=== PATIENT | male | born 1945 | race Caucasian/White ===

== ENCOUNTER 2017-08-22 12:30 | Inpatient (IN) | payer OTHER, MEDICARE ==
--- NOTE | 2017-09-25 15:16 | GHP ---
[f rep st] PREOP HISTORY AND PHYSICAL DATE OF ADMISSION: 09/26/2017 CHIEF COMPLAINT: Right ankle pain. HISTORY OF PRESENT ILLNESS: The patient is a 72-year-old with a history of progressive right ankle p ain. He is having limited activity secondary to his pain. PAST MEDICAL HISTORY: Positive for cancer. PAST SURGICAL HISTORY: Positive for previous orthopedic surgeries. SOCIAL HISTORY: Negative for current tobacco smoking. MEDICATIONS: He lists no medicines. ALLERGIES: He has no drug allergies. PHYSICAL EXAMINATION: HEENT: Head is normocephalic. Pupils equal, round, reactive to light. Extra ocular eye movements intact. NECK: Supple. No JVD or lymphadenopathy. CHEST: Clear to auscultati on. HEART: Regular rate and rhythm. No murmurs or gallops. ABDOMEN: Soft, nontender, nondistende d. No organomegaly. GENITALIA: Exam was deferred. RECTUM: Exam was deferred. BREASTS: Exam was deferred. EXTREMITIES: Exam reveals moderate swelling, diffuse tenderness in his right ankle. IMAGING: AP and lateral radiographs showed advanced ankle arthrosis. ASSESSMENT: Right ankle arthrosis. PLAN: The patient is scheduled to undergo right total ankle arthroplasty. /[id number]/MODL
[2017-09-26] MEDS ORDERED: LIDOCAINE 1% 2 ML INJ ID PRN (11:20)
[2017-09-26] MEDS ORDERED: LR 1,000 ML IV ONE (11:20)
[2017-09-26] MEDS ORDERED: ceFAZolin 2 GM/SWFI 2 GM/20 ML SYR IVP ONE (11:30)
--- NOTE | 2017-09-26 11:30 | PDANEPAE ---
ANE Past Medical History - Cardiovascular History Hx Hypertension: No Hx Arrhythmias: No Hx Chest Pain: No Hx Coronary Artery / Peripheral Vascular Disease: No Hx CHF / Valvular Disease: No Hx Palpitations: No - Pulmonary History Hx COPD: No Hx Asthma/Reactive Airway Disease: No Hx Recent Upper Respiratory Infection: No Hx Oxygen in Use at Home: No Hx Sleep Apnea: No Sleep Apnea Screening Result - Last Documented: Negative - Neurologic History Hx Cerebrovascular Accident: No Hx Seizures: No Hx Dementia: No - Endocrine History Hx Diabetes: No Hypothyroid: No Hyperthyroid: No Obesity: no - Renal History Hx Renal Disorders: No Renal History Comment: BLADDER CANCER - Liver History Hx Hepatic Disorders: No - Neurological & Psychiatric Hx Hx Neurological and Psychiatric Disorders: No - Cancer History Hx Cancer: Yes Cancer History Comment: BLADDER CANCER 2009 - Congenital Disorder History Hx Congenital Disorders: No - GI History GERD: no Hx Gastrointestinal Disorders: No - Other Health History Other Health History: NEG - Chronic Pain History Chronic Pain: Yes - Surgical History Prior Surgeries: 2009 BLADDER TUMORS. 2009 L KNEE. 2000 R ANKLE ANE Review of Systems Review of Systems: - Exercise capacity METS (RN): 5 METS ANE Patient History - Allergies Allergies/Adverse Reactions: No Known Allergies Allergy (Unverified 08/10/17 10:50) - Home Medications Home Medications: Herbals/Supplements -Info Only 1 each PO DAILY 08/10/17 [Last Taken 09/19/17] - Smoking Hx Smoking Status: Former smoker Marijuana use: No - Alcohol Use Alcohol Use: Occasionally - Family Anes Hx Family Anes Hx: neg - N/A Family Hx Anesthesia Complications: NEG ANE Labs/Vital Signs - Vital Signs Height: 172.72 cm Weight: 73.936 kg ANE Physical Exam - Airway Neck exam: FROM Mallampati Score: Class 2 Mouth exam: normal dental/mouth exam - Pulmonary Pulmonary: no respiratory distress, no rales or rhonchi, clear to auscultation - Cardiovascular Cardiovascular: regular rate and rhythym - ASA Status ASA Status: II ANE Anesthesia Plan Anesthesia Plan: GA w LMA Regional Anesthesia: continuous NB, popliteal SNB
[2017-09-26] MEDS ORDERED: morphINE PCA 30 MG/30 ML PCA IV PRN (11:41)
[2017-09-26] MEDS ORDERED: ONDANSETRON 4 MG/2 ML VIAL IVP PRN ×2 (11:41→14:45)
[2017-09-26] MEDS ORDERED: diphenhydrAMINE 25 MG CAP PO PRN (11:41)
[2017-09-26] MEDS ORDERED: NALOXONE HCL 0.4 MG/ML INJ IVP PRN ×2 (11:41→14:45)
[2017-09-26] MEDS ORDERED: PROMETHAZINE HCL 25 MG/ML INJ IVP PRN ×2 (11:41→14:45)
--- NOTE | 2017-09-26 11:41 | POSTOPPROG ---
Post Op Note Date of Operation: 09/26/17 Surgeon: Lloyd Leyva Director Of Extension Work: Kelly De Dios PA-C Anesthesia: GET(General Endotracheal) Pre-op Diagnosis: R ankle arthrosis Post-op Diagnosis: same Procedure: R TAA Inf/Abcess present in the surg proc area at time of surgery?: No
[2017-09-26] MEDS ORDERED: D5W 1/2 NS W/ 20 KCl/L 1,000 ML IV SCH (11:45)
[2017-09-26] MEDS ORDERED: BUPIVACAINE 0.5% 30 ML SDV ONE (11:45)
[2017-09-26] MEDS ORDERED: MIDAZOLAM 2 MG/2 ML VIAL ONE (11:50)
[2017-09-26] MEDS ORDERED: MIDAZOLAM 2 MG/2 ML VIAL IVP ONE (11:52)
[2017-09-26] MEDS ORDERED: fentaNYL 100 MCG/2 ML INJ ONE ×2 (11:54→14:00)
[2017-09-26] MEDS ORDERED: DEXAMETHASONE 4 MG/ML VIAL ONE (11:54)
[2017-09-26] MEDS ORDERED: ONDANSETRON 4 MG/2 ML VIAL ONE (11:54)
[2017-09-26] MEDS ORDERED: PROPOFOL 200 MG/20 ML VIAL ONE (11:55)
[2017-09-26] MEDS ORDERED: LIDOCAINE 2% 5 ML SDV ONE (11:55)
[2017-09-26] MEDS ORDERED: ROCURONIUM 50 MG/5 ML VIAL ONE ×2 (12:17→14:31)
[2017-09-26] MEDS ORDERED: epHEDrine SULFATE 10 MG/ML SYR ONE (13:00)
[2017-09-26] MEDS ORDERED: REMIFENTANIL HCL 1 MG VIAL ONE (14:16)
[2017-09-26] MEDS ORDERED: ACETAMINOPHEN 500 MG TAB PO PRN (14:45)
[2017-09-26] MEDS ORDERED: LR 500 ML IV PRN (14:45)
[2017-09-26] MEDS ORDERED: OXYCODONE/APAP 5/325 TAB PO PRN (14:45)
[2017-09-26] MEDS ORDERED: fentaNYL 100 MCG/2 ML INJ IVP PRN (14:45)
[2017-09-26] MEDS ORDERED: HYDROCODONE/APAP 5/325 TAB PO PRN (14:45)
[2017-09-26] MEDS ORDERED: SUGAMMADEX SODIUM 200 MG/2 ML VIAL IVP ONE (14:52)
[2017-09-26] MEDS ORDERED: [UNRECOGNIZED DRUG - OTHER] IF ONE (15:16)
--- NOTE | 2017-09-26 15:19 | POSTANESTH ---
Post Anesthetic Evaluation Cardiovascular Status: Normal, Stable Respiratory Status: Normal, Stable Level of Consciousness/Mental Status: Can Participate in Eval Pain Control: Adequate, Prn Tx Ordered Nausea/Vomiting Control: Adequate, Prn Tx Ordered Complications Possibly Related to Anesthesia: None Noted
[2017-09-26] MEDS ORDERED: ROPIVACAINE 0.2% 1,100 MG in PUMP SET 1 EA NB SCH (15:30)
[2017-09-26] MEDS ORDERED: BUPIVACAINE 0.25% 550 ML in PUMP SET 1 EA NB SCH (15:30)
[2017-09-26] MEDS: ceFAZolin 2 GM/DEXTROSE 100 ML IV SCH ×2 (17:32→21:39)
[2017-09-26] MEDS: ENOXAPARIN 30 MG/0.3 ML SYR SC SCH (21:39)
--- NOTE | 2017-09-26 23:03 | GOP ---
[f rep st] OPERATIVE REPORT DATE OF OPERATION: 09/26/2017 SURGEON: Lloyd Leyva MD BUTTON STATION WORKER: Emilie De Dios PA-C, who was necessary for the completion of the surgery. ANESTHESIA: General plus indwelling popliteal block performed by the anesthesiologist at my request for postoperative pain management. PREOPERATIVE DIAGNOSIS: 1. Right ankle arthrosis. 2. Right lateral ankle ligament instability. POSTOPERATIVE DIAGNOSIS: 1. Right ankle arthrosis. 2. Right lateral ankle ligament instability. PROCEDURE PERFORMED: 1. Right total ankle arthroplasty. 2. Right lateral ankle ligament reconstruction. 3. Intraoperative use of fluoroscopy. FINDINGS: ESTIMATED BLOOD LOSS: Minimal. INDICATIONS: The patient is a 72-year-old with history of progressive ankle pain. Clinically and ra diographically was noted to have advanced ankle arthrosis. Based on his persistence of symptoms limi ting his activities, he chooses to pursuing operative treatment. From an operative standpoint, arthr odesis and total ankle arthroplasty were discussed, with the anticipated risks and benefits of both. Patient elected to proceed with total ankle arthroplasty. He understood the potential risks of the operation, including but not limited to, bleeding, infection, neurovascular damage, loss of limb func tion, pain or functional limitations despite operative treatment, implant failure requiring revision, removal, arthrodesis or potentially amputation and anesthetic risks. He acknowledged he understood the potential risks, planned procedure, and postoperative plan well, and had all questions answered p rior to surgery. He gave his consent for the operative procedure. DESCRIPTION OF PROCEDURE: The patient was brought in the operating after IV antibiotics were adminis tered. He was brought in the operating room, where indwelling popliteal block was performed by the a nesthesiologist at my request for postoperative pain management. General anesthetic was administered . A tourniquet was placed on his right thigh, bump underneath the right hip and shoulder, and his [facility] lower extremity was prepped and draped in standard sterile fashion. After marking the incision a nd Pérez wrap exsanguination, tourniquet was inflated to 250. An anterior approach to the ankle was ut ilized for exposure. Skin and subcutaneous tissue were sharply incised. Sharp dissection was sabrina d through the extensor retinaculum. The interval between the tibialis anterior and extensor hallus l ongus was utilized for exposure, taking care to avoid damage to neurovascular bundle. The capsule wa s longitudinally incised with capsular flaps reflected medially and laterally. Prominent osteophytes on the anterior aspect of the distal tibia were removed with an osteotome. The cutting guide from [employer] total ankle was applied. Adjustments were made for flexion extension and varus an d valgus alignment. Provisional pin was placed through the cutting jig into the tibia. Definitive c orrections for rotation in medial lateral translation of the distal tibial cutting jig as well as tib ial resection were made and confirmed fluoroscopically. Further pinning of the jig was performed. U tilizing a saw, the horizontal plafond cut was made. The medial gutter cut was then drilled through the drilling holes and completed with a saw. The cut bone portion of the tibia was removed with oste otome and rongeur. The talar cutting guide was then applied. After distracting through the jig and pinning the cutting guide in place, with the ankle in a reduced neutral dorsiflexed position, the bsuter fond cut was made. The posterior chamfer cutting guide was optimally positioned. Position confirmed fluoroscopically. After pinning the guide in place, the posterior chamfer cut was made with a saw. Utilizing the same guide pins, the anterior talus routing guide was applied and multiple drill holes were drilled through to create the anterior cut. The keel pins were then drilled through the cuttin g guide. A size 2 talus trial was impacted into place and found to favorable fit. After intraoperat jhonathan measuring, 2 long tibial component to trial was chosen. The trial with 10 mm polyethylene insert s had favorable fit. There was still lateral laxity which was felt to require lateral ankle ligament reconstruction. The keel holes from the tibial component were drilled through the cutting block. D efinitive size 2 talar and tibial implants with a 10 mm polyethylene was impacted in place. Fluorosc opic views confirmed favorable positioning. Attention was directed towards closure. The capsule and extensor retinaculum were closed with 2-0 Vi cryl suture in interrupted fashion. Subcutaneous tissue was closed with 3-0 Vicryl suture in interru pted fashion. Skin closed with 4-0 nylon interrupted vertical mattress sutures. A lateral ankle ligament reconstruction was performed. An oblique incision was made starting posteri rosalia to the distal fibula and curving gently in the lateral hindfoot. Skin and subcutaneous tissue w ere sharply incised. Dissection was carried down to the periosteum of the fibula. Subperiosteal fla ps were developed off the anterior ankle capsule. A small incision was made dorsal to the peroneal te ndons. Calcaneal fibular ligament was identified and felt to be in satisfactory condition for primar y advancement. The CFL was detached off its fibular insertion. Using 4.5 mm drill bit, a drill hole was placed in the tip of the fibula at the insertion of the calcaneofibular ligament. Two 2.[address] ill holes were connected with this. #1 PDS suture was placed through 1 of the 2-0 drill holes off th e 4-5 trough through the calcaneal fibular ligament back through 4-5 trough and out the other 2-0 dri ll hole. The CFL was left for further tightening. The anterior talofibular ligament was then vertic ally incised, secured onto itself in a "[id number]" fashion with #1 PDS suture. The extensor re tinaculum was advanced in all wounds to the fibular periosteum with 0 PDS suture. The calcaneofibula r ligament sutures were then secured. The ankle was examined and found to be stable to inversion str ess. The deep tissue was closed with 3-0 Vicryl suture in interrupted fashion. Subcutaneous tissue closed with 3-0 Vicryl suture in interrupted fashion. Skin closed with 4-0 nylon interrupted vertica l mattress sutures. The wounds were dressed with sterile Adaptic, 4 x 4, and Webril and the leg was placed in a below-knee splint. Tourniquet had been deflated with favorable capillary refill of the t oes. A below-knee splint was applied. The patient was taken to the recovery room, extubated in stab le condition postoperatively. All sponge, needle, and instrument counts were reported as being corre ct. DRAINS: None. COMPLICATIONS: None. PLAN: The patient will be admitted for medical management. He will be nonweightbearing on his opera tive extremity. /[id number]/MODL
[2017-09-27] MEDS: oxyCODONE IR 5 MG TAB PO PRN ×2 (03:52→07:53)
--- NOTE | 2017-09-27 05:51 | SOAPPROG ---
SOAP Progress Note Assessment/Plan: Assessment: S/P R TAA Some pain mostly medially Jim po + U/O Splint intavt, no D/C Toe 1-5 with + DF/PF Good cap refill Plan: OOB/PT Poss D/C today 09/27/17 05:49 Objective: Vital Signs Temp Pulse Resp BP Pulse Ox 36.8 C 52 L 14 102/58 L 91 L 09/27/17 03:12 09/27/17 05:15 09/27/17 05:15 09/27/17 05:15 09/27/17 05:15 09/25/17 09/26/17 09/27/17 05:59 05:59 05:59 Intake Total 2300 Output Total 855 Balance 1445 ICD10 Worksheet Patient Problems: Problems Problem Status Onset Ankle arthritis Acute - ICD10 Problem Qualifiers (1) Ankle arthritis
[2017-09-27] MEDS: ceFAZolin 2 GM/DEXTROSE 100 ML IV SCH ×2 (06:03→12:14)
[2017-09-27] MEDS ORDERED: POLYETHYLENE GLYCOL 3350 17 GM PKT PO PRN (07:44)
[2017-09-27] MEDS ORDERED: LACTULOSE 20 GM/30 ML UDCUP PO PRN (07:44)
[2017-09-27] MEDS ORDERED: MAGNESIUM HYDROXIDE 30 ML UDCUP PO PRN (07:44)
[2017-09-27] MEDS ORDERED: BISACODYL 10 MG SUPP PR PRN (07:44)
[2017-09-27] MEDS: ENOXAPARIN 30 MG/0.3 ML SYR SC SCH (07:54)
[2017-09-27 08:10] VITALS: RESP 16
[2017-09-27] MEDS ORDERED: SENNOSIDES/DOCUSATE SODIUM TAB PO SCH (09:00)
[2017-09-27 11:55] VITALS: BP 106/58; PULSE 51; TEMP 209.5; O2SAT 92
--- NOTE | 2017-09-27 14:01 | ASDISCHSUM ---
Discharge Information Plan Status:Home with No Needs Medically Cleared to Leave: Discharge Date:09/27/2017 01:25 PM CM D/C Disposition:Home, Routine, Self-Care ADT D/C Disposition:Home, Routine, Self-Care Projected Discharge Date:09/27/2017 01:25 PM Transportation at D/C:Family Discharge Delay Reason: Follow-Up Date:09/27/2017 01:25 PM Discharge Slot: Final Diagnosis: Placement Information Patient Contact Information Contact Name:LIONEL Relationship: Address:[address] [place] City:[place] Alternate Phone: [facility]/Zip Code:[place] [address] Email: Financial Information Financial Class:MC Primary Plan Desc:MEDICARE INPATIENT Primary Plan Number:[id number] Secondary Plan Desc:[employer]/MDR SUPPLEMENT Secondary Plan Number:[id number] Assessment Information Intervention Information
== END 2017-09-27 13:25 | disposition home or self-care (01) | DRG 469 ==
LOC: F3E 09-26 10:48 → F3N 09-26 17:27
PROVIDERS: ADMIT Orthopaedic Surgery Foot and Ankle Surgery; ATTEND Orthopaedic Surgery Foot and Ankle Surgery
DX: M19.071 Primary osteoarthritis, right ankle and foot (principal); M25.371 Other instability, right ankle; Z85.51 Personal history of malignant neoplasm of bladder
CPT/HCPCS: 97116-GP; 97161-GP; G8978-GP-CI; G8979-GP-CI; G8980-GP-CI; J0690; J1100; J1650; J2250; J2270; J2405; J2704; J2795; J3010